=== PATIENT | female | born 1955 | race Caucasian/White ===

== ENCOUNTER → 2017-09-15 | Outpatient (CLI) | payer OTHER ==
--- NOTE | 2017-09-15 11:15 | DIAGNOSTIC IMAGING REPORT ---
R KNEE 1 OR 2 VIEWS ROUTINE HISTORY: 62 years-old Female R KNEE acute right knee pain COMPARISON: Right tibia and fibula radiographs of same day TECHNIQUE: 2 views of the right knee FINDINGS: Mild medial and patellofemoral compartment osteoarthritis with marginal spurring. There is no acute fracture, dislocation or intra-articular loose body. Small to moderate joint effusion. Negative for opaque foreign body. IMPRESSION: 1. Small to moderate joint effusion without acute fracture or dislocation. 2. Mild medial and patellofemoral compartment osteoarthritis. The above report was generated using voice recognition software. It may contain grammatical, syntax or spelling errors. Electronically signed by: Livan Cadena M.D. 09/15/2017 11:14 AM Dictated Date/Time: 09/15/2017 11:12 AM
--- NOTE | 2017-09-15 11:15 | DIAGNOSTIC IMAGING REPORT ---
R TIBIA/FIBULA 2 VIEWS ROUTINE CLINICAL HISTORY: Right lower leg pain COMPARISON: None. DISCUSSION: There are mild osteoarthritic changes present within the knee. No fractures are visualized. No destructive lesions are evident. IMPRESSION: No fractures or destructive lesions are visualized. Electronically signed by: Anthony Burris M.D. 09/15/2017 11:13 AM Dictated Date/Time: 09/15/2017 11:12 AM
== END | disposition home or self-care (01) ==
LOC: C.RAD1850 10:56
PROVIDERS: ATTEND Nurse Practitioner Family
DX: M25.561 Pain in right knee (principal); R22.41 Localized swelling, mass and lump, right lower limb; W19.XXXA Unspecified fall, initial encounter; Y99.0 Civilian activity done for income or pay

== ENCOUNTER → 2017-09-16 | Outpatient (CLI) | payer OTHER ==
--- NOTE | 2017-09-16 09:24 | DIAGNOSTIC IMAGING REPORT ---
MRI OF THE RIGHT KNEE CLINICAL HISTORY: Right knee pain. Injury 2 weeks ago. COMPARISON STUDY: Radiographs of the right knee dated 09/15/2017. TECHNIQUE: MRI of the right knee was performed utilizing proton density, T1, and T2-weighted sequences in the axial, sagittal, coronal planes. IV contrast was not administered for this examination. FINDINGS: Menisci: There is degenerative tearing involving the body and posterior horn of the medial meniscus. The medial meniscus appears truncated, likely related to previous surgery. There is increased signal identified within the body of the lateral meniscus, likely representing a small radial tear. This is best seen on coronal image #17. The lateral meniscus is otherwise intact. Ligaments: Findings are consistent with rupture of the anterior cruciate ligament. A few fibers may remain intact. The posterior cruciate ligament is maintained. The medial and lateral collateral ligaments are within normal limits. Extensor mechanism: The extensor mechanism is intact. Hoffa's fat pad is normal in appearance. Articular cartilage and bone: There is mild (less than 50%) stenosis degenerative thinning of the articular cartilage along the weightbearing surface in the medial and lateral compartments, greatest in the medial compartment. There is also mild thinning of the articular cartilage of the patellofemoral articulation. No full-thickness cartilage loss is identified. There is a large bony contusion identified within the lateral tibial plateau. There are small medial marginal osteophytes. Joint effusion: There is trace joint effusion. Soft tissues: The musculature surrounding the knee joint is normal in bulk and signal intensity. IMPRESSION: 1. Findings are consistent with rupture of the anterior cruciate ligament. A few fibers likely remain intact. 2. There is degenerative tearing and truncation identified involving the body and posterior horn of the medial meniscus. Some of this is likely related to previous partial meniscectomy. 3. Suspect a small radial tear involving the body of the lateral meniscus. 4. The posterior cruciate ligament and the collateral ligaments are intact. 5. There is a large bony contusion seen within the lateral tibial plateau. 6. Small joint effusion. 7. Mild arthritic change as above. Electronically signed by: Sedrick Fragoso M.D. 09/16/2017 9:22 AM Dictated Date/Time: 09/16/2017 9:15 AM
== END | disposition home or self-care (01) ==
LOC: C.MRI 08:16
PROVIDERS: ATTEND Nurse Practitioner Family
DX: M23.221 Derangement of posterior horn of medial meniscus due to old tear or injury, right knee (principal); W19.XXXA Unspecified fall, initial encounter; Y92.89 Other specified places as the place of occurrence of the external cause